=== PATIENT | male | born 1995 | race Caucasian/White ===

== ENCOUNTER 2018-09-12 07:14 | Emergency (ER) | payer OTHER ==
[~2018-09-12] VITALS: Ht 170.2 cm; Wt 68.2 kg
[2018-09-12 07:17] VITALS: BP 129/75; TEMP 98.6
[2018-09-12] MEDS ORDERED: CEPHALEXIN500 M1 PO (07:50)
[2018-09-12 09:18] VITALS: PULSE 89
== END 2018-09-12 09:17 | disposition home or self-care (01) ==
LOC: COL.ER 07:14
DX: S61.412A Laceration without foreign body of left hand, initial encounter (principal); W26.8XXA Contact with other sharp object(s), not elsewhere classified, initial encounter; Y92.009 Unspecified place in unspecified non-institutional (private) residence as the place of occurrence of the external cause
CPT/HCPCS: Q4021

== ENCOUNTER 2020-07-07 01:54 | Emergency (ER) | payer OTHER ==
[~2020-07-07] VITALS: Ht 172.7 cm; Wt 68.2 kg
[~2020-07-07 01:54] MED LIST: CEPHALEXIN500 M1 PO
[2020-07-07 01:57] VITALS: BP 125/81; TEMP 98.5
[2020-07-07 02:42] VITALS: PULSE 90
== END 2020-07-07 02:45 | disposition home or self-care (01) ==
LOC: COL.ER 01:54
DX: S01.112A Laceration without foreign body of left eyelid and periocular area, initial encounter (principal); Z23 Encounter for immunization; W22.03XA Walked into furniture, initial encounter; Y93.72 Activity, wrestling; Y92.009 Unspecified place in unspecified non-institutional (private) residence as the place of occurrence of the external cause